=== PATIENT | female | born 1960 | race Caucasian/White ===

== ENCOUNTER 2021-01-07 00:06 | Inpatient (IN) | payer MEDICARE, BC ==
[~2021-01-07] VITALS: Ht 162.6 cm; Wt 95.1 kg
--- NOTE | 2021-01-07 00:20 | NUR ---
PATIENT BIB [facility] FROM HOME FOR ALTEREMED MENTAL STATUS AND WEAKNESS ACCORDING TO THE FAMILY. BLOOD SUGAR IN THE FIELD 202, PATIENT IS ON AN INSULIN PUMP. PATIENT IS ALERT/ORIENTED X2 AT THIS TIME, BILATERAL LOWER EXTREMITY WEAKNESS NOTED, BILATERAL HAND GRASP STRONG EQUALLY. NO FACIAL DROOPING NOTED.
--- NOTE | 2021-01-07 00:26 | NUR ---
DR. LEGGETT AT BEDSIDE FOR MSE.
[2021-01-07] MEDS ORDERED: IV NORMAL SALINE 1000 ML BAG IV ONE (00:45)
[2021-01-07 00:56] LABS: BASOPHILS % (AUTO) 0.4 % (0.0-2.0); EOSINOPHILS # (AUTO) 0.3 K/uL (0.0-0.7); EOSINOPHILS % (AUTO) 4.3 % (0.0-7.0); HEMATOCRIT 35.2 % (31.2-41.9); HEMOGLOBIN 11.6 g/dL (10.9-14.3); LYMPHOCYTES # (AUTO) 0.4 K/uL (20.0-40.0); LYMPHOCYTES % (AUTO) 6.7 % (20.5-51.5); MEAN CORPUSCULAR HGB CONC 33 g/dL (32.3-35.6); MONOCYTES # (AUTO) 0.3 K/uL (2.0-10.0); MONOCYTES % (AUTO) 4.9 % (0.0-11.0); NEUTROPHILS # (AUTO) 5.5 K/uL (1.8-8.9); NEUTROPHILS % (AUTO) 83.7 % (38.5-71.5); PLATELET COUNT (AUTO) 145 K/uL (179-408); WHITE BLOOD COUNT (AUTO) 6.6 K/uL (3.8-11.8)
[2021-01-07] MEDS ORDERED: PREG75CA PO (00:59)
[2021-01-07] MEDS ORDERED: METO-356 PO (00:59)
[2021-01-07] MEDS ORDERED: FLUO40CA49 PO (00:59)
[2021-01-07] MEDS ORDERED: ASPI81TA31 PO (00:59)
[2021-01-07] MEDS ORDERED: CLOP75TA33 PO (00:59)
[2021-01-07] MEDS ORDERED: FURO40TA5 PO (00:59)
[2021-01-07] MEDS ORDERED: OMEP40CA13 PO (00:59)
[2021-01-07] MEDS ORDERED: LOSA25TA27 PO (00:59)
[2021-01-07 01:12] LABS: ETHANOL < 3 MG/DL (0-0)
[2021-01-07 01:14] LABS: ALANINE AMINOTRANSFERASE 27 U/L (14-59); ALKALINE PHOSPHATASE 98 U/L (50-136); ASPARTATE AMINOTRANSFERASE 14 U/L (15-37); BILIRUBIN,DIRECT 0.1 mg/dL (0.0-0.2); BILIRUBIN,TOTAL 0.4 mg/dL (0.2-1.0); CARBON DIOXIDE 27 mmol/L (21-32); CHLORIDE 103 mmol/L (98-107); CREATININE 2.2 mg/dL (0.6-1.3); GLUCOSE 185 mg/dL (74-106); POTASSIUM 4.5 mmol/L (3.5-5.1); TOTAL PROTEIN, SERUM 7.6 g/dL (6.4-8.2); UREA NITROGEN, BLOOD 52 mg/dL (7-18)
[2021-01-07 01:15] LABS: ACETAMINOPHEN < 2.0 ug/mL (10-30)
[2021-01-07 01:18] LABS: THYROID STIMULATING HORMONE 1.555 mIU/mL (0.358-3.740)
[2021-01-07 01:52] LABS: *BILIRUBIN,URIN NEGATIVE (NEGATIVE); *CLARITY,URINE CLEAR (CLEAR); *COLOR,URINE YELLOW (YELLOW); *KETONES,URINE NEGATIVE (NEGATIVE); *UROBILINOGEN,URINE 0.2 E.U./dl (NORMAL); LEUKOCYTE ESTERASE ,URINE NEGATIVE (NEGATIVE); NITRITE, URINE NEGATIVE (NEGATIVE); UGLUCOSE NEGATIVE (NEGATIVE)
[2021-01-07 01:55] LABS: *BLOOD, URINE TRACE (NEGATIVE)
[2021-01-07 02:05] LABS: *AMPHETAMINE, URINE NEGATIVE (NEGATIVE); *CANNABINOID, URINE POSITIVE (NEGATIVE); *COCCAINE, URINE NEGATIVE (NEGATIVE); *OPIATE, URINE NEGATIVE (NEGATIVE); *PHENCYCLIDINE SCREEN,URINE NEGATIVE (NEGATIVE)
[2021-01-07 02:23] LABS: BACTERIA,URINE NONE SEEN /HPF (NONE SEEN); SQUAMOUS EPITHELIAL CELL,UR FEW /HPF (NONE SEEN); WBC,URINE 0-3 /HPF (0-3)
--- NOTE | 2021-01-07 03:24 | NUR ---
Pt. admitted to [facility] , under care of Dr. Lemon Belongs List completed. Report BRIDGET Burton.
[2021-01-07 04:20] VITALS: BP 156/59
[2021-01-07 04:25] VITALS: BP 156/76
--- NOTE | 2021-01-07 04:34 | NUR ---
Called Dr. Lemon, notified about admitting orders and pt's condition. As per MD, she will put it in.
--- NOTE | 2021-01-07 05:00 | NUR ---
Pt arrived in the unit at 0345. Altered mental status. No acute distress noted. Pt noted with fever and chills. Paged Dr. Lemon regarding admitting orders. Safety measures maintained. Call light within reach. Will continue to monitor.
[2021-01-07] MEDS ORDERED: Z GUARD REMEDY PASTE 57 GM TUBE TOP PRN (05:45)
[2021-01-07] MEDS ORDERED: ONDANSETRON 4 MG/2 ML VIAL IV PRN (05:45)
[2021-01-07] MEDS ORDERED: MAGNESIUM HYDROXIDE 30 ML LIQUID UDC PO PRN (05:45)
[2021-01-07] MEDS ORDERED: ZOLPIDEM 5 MG TABLET PO PRN (05:45)
[2021-01-07] MEDS ORDERED: IV 1/2NS 1000 ML 1,000 ML IV PRN (05:45)
[2021-01-07] MEDS ORDERED: ACETAMINOPHEN 325 MG TABLET PO PRN ×2 (05:45)
[2021-01-07] MEDS ORDERED: HYDROCODONE/APAP 5-325MG TABLET PO PRN (05:45)
[2021-01-07] MEDS ORDERED: ASPIRIN 81 MG TAB.CHEW PO SCH (10:30)
[2021-01-07] MEDS ORDERED: METOPROLOL SUCCINATE XL 25 MG TAB.SR.24H PO SCH (10:30)
[2021-01-07] MEDS ORDERED: LOSARTAN POTASSIUM 25 MG TABLET PO SCH (10:30)
[2021-01-07] MEDS ORDERED: CLOPIDOGREL 75 MG TABLET PO SCH (10:30)
[2021-01-07] MEDS ORDERED: INSULIN REGULAR, HUMAN 300 UNIT/3 ML VIAL SQ PRN (10:45)
[2021-01-07] MEDS ORDERED: DEXTROSE 50% 50 ML DISP.SYRIN IV PRN (10:45)
[2021-01-07] MEDS ORDERED: BLOOD SUGAR DIAGNOSTIC 1 EACH STRIP VI SCH (11:30)
[2021-01-07 11:50] VITALS: BP 114/55
[2021-01-07 16:00] VITALS: BP 105/46
--- NOTE | 2021-01-07 19:22 | NUR ---
pt discharged 01/07/21 4:30 PM to home with all belongings. all paperwork signed and in chart with copy given to the pt. medications list sent to the pharmacy. all medications given as ordered. pt left in stable condition and was picked up by Shira her sister. IV and name band removed. discharge and teaching completed.
[2021-01-08] MEDS ORDERED: PANTOPRAZOLE SODIUM 40 MG TABLET.DR PO SCH (07:00)
== END 2021-01-07 16:30 | disposition home health service (06) | DRG 91 ==
LOC: ER 00:13 → MEDSURG3 03:32
PROVIDERS: ADMIT Nurse Practitioner Acute Care; ATTEND Nurse Practitioner Acute Care
DX: G92 Toxic encephalopathy (principal); N17.0 Acute kidney failure with tubular necrosis; D68.69 Other thrombophilia; I50.32 Chronic diastolic (congestive) heart failure; I13.0 Hypertensive heart and chronic kidney disease with heart failure and stage 1 through stage 4 chronic kidney disease, or unspecified chronic kidney disease; I25.2 Old myocardial infarction; Z95.5 Presence of coronary angioplasty implant and graft; Z79.02 Long term (current) use of antithrombotics/antiplatelets; R41.82 Altered mental status, unspecified; F17.210 Nicotine dependence, cigarettes, uncomplicated; N18.9 Chronic kidney disease, unspecified; Z79.4 Long term (current) use of insulin; F12.90 Cannabis use, unspecified, uncomplicated; Z90.710 Acquired absence of both cervix and uterus; I25.10 Atherosclerotic heart disease of native coronary artery without angina pectoris; E66.01 Morbid (severe) obesity due to excess calories; T40.7X5A Adverse effect of cannabis (derivatives), initial encounter; G89.29 Other chronic pain; E10.22 Type 1 diabetes mellitus with diabetic chronic kidney disease; R51.9 Headache, unspecified; T50.B95A Adverse effect of other viral vaccines, initial encounter; Y92.009 Unspecified place in unspecified non-institutional (private) residence as the place of occurrence of the external cause; Z20.822 Contact with and (suspected) exposure to COVID-19
CPT/HCPCS: 36415; 51702; 70030-TC; 70450; 71045; 83605; 84443; 85025; 85730; 87040; 87086; 93005; 93307; A4663; C1758; G0378; G0480; J1815; J3490; J7030; U0003